=== PATIENT | male | born 1990 | race Caucasian/White ===

== ENCOUNTER 2021-04-16 19:13 | Emergency (ER) | payer OTHER ==
[~2021-04-16] VITALS: Ht 188 cm; Wt 165.6 kg
[2021-04-16] MEDS ORDERED: methylPREDNISolone 125 MG (Solu-MEDROL) VIAL IV STA (19:46)
--- NOTE | 2021-04-16 19:57 | ED General ---
General Chief Complaint: Allergic Reaction Stated Complaint: RASH ON KNEES Nursing Triage Note: PT REPORTS TO ED FROM [facility]RGENT [facility]ARE [facility] WITH C/O RASH NOT GETTING BETTER AFTER 1WK OF ANTIBIOTICS. History of Present Illness Date Seen by Provider: Apr 16, 2021 Time Seen by Provider: 19:53 Initial Comments Patient is a 30-year-old male who presents ED with a lower extremity rash. Patient states rash started 1 week ago. Patient was outside and unsure if he was in contact with poison shannon. He did states he was scratched by a cat at home. Patient noted fluid-filled blisters. 2 days ago was placed on Keflex and doxycycline by [facility]. Recheck today recommend to come to the ED for IV antibiotics. Denies chest pain, shortness of breath, nausea, vomiting, diarrhea, fever. Does report a rash to the chest. He states the rash does itch. Denies of any change in foods, medications 1 week ago. Denies of any sore throat, oral lesions, sloughing of the skin. Allergies and Home Medications Allergies Coded Allergies: No Known Drug Allergies (Unverified , 04/16/21) Patient Home Medication List Home Medication List Reviewed: Yes Prednisone (Prednisone) 10 Mg Tab.ds.pk, 10 MG PO DAILY Prescribed by: SIERRA KEYS on 04/16/212131 Review of Systems Review of Systems Constitutional: No chills, No dizziness, No fever EENTM: No ear discharge, No hearing loss, No ear pain Respiratory: No cough, No orthopnea, No short of breath Cardiovascular: No chest pain Gastrointestinal: No abdominal pain, No diarrhea, No nausea, No vomiting Musculoskeletal: No back pain, No gout, No joint pain, No joint swelling Skin: lesions, rash, other (Lesions red, fluid-filled to the lower extremity. 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 oz. kg; 46.00 BMI Method: General Appearance: No Apparent Distress, WD/WN Eyes: Bilateral Eye Normal Inspection, Bilateral Eye PERRL HEENT: PERRL/EOMI, TMs Normal, Normal ENT Inspection, Pharynx Normal Neck: Full Range of Motion, Normal Inspection Respiratory: Chest Non Tender, Lungs Clear, Normal Breath Sounds, No Accessory Muscle Use Cardiovascular: Regular Rate, Rhythm, No Edema Gastrointestinal: Normal Bowel Sounds, No Organomegaly, No Pulsatile Mass, Non Tender, Soft Extremity: Other (Bilateral lower leg swelling. Diffuse erythematous papules with large fluid-filled vesicles. No purulent drainage. Clear fluid drainage) Neurologic/Psychiatric: Alert, Oriented x3 Skin: Normal Color, Warm/Dry, Other (Erythematous papules noted to the chest) Lymphatic: No Adenopathy Progress/Results/Core Measures Suspected Sepsis SIRS Temperature: Pulse: 88 Respiratory Rate: 16 Laboratory Tests 04/16/21 20:16: White Blood Count 12.5H Blood Pressure 149 /92 Mean: 111 Laboratory Tests 04/16/21 20:16: Creatinine 0.91, Platelet Count 343, Total Bilirubin 0.6 Results/Orders Lab Results Laboratory Tests Test 04/16/21 20:16 Range/Units White Blood Count 12.5 H 4.3-11.0 10^3/uL Red Blood Count 5.47 4.30-5.52 10^6/uL Hemoglobin 15.8 13.3-17.7 g/dL Hematocrit 47 40-54 % Mean Corpuscular Volume 86 80-99 fL Mean Corpuscular Hemoglobin 29 25-34 pg Mean Corpuscular Hemoglobin Concent 34 32-36 g/dL Red Cell Distribution Width 13.5 10.0-14.5 % Platelet Count 343 130-400 10^3/uL Mean Platelet Volume 10.3 9.0-12.2 fL Immature Granulocyte % (Auto) 0 % Neutrophils (%) (Auto) 65 42-75 % Lymphocytes (%) (Auto) 22 12-44 % Monocytes (%) (Auto) 6 0-12 % Eosinophils (%) (Auto) 7 0-10 % Basophils (%) (Auto) 0 0-10 % Neutrophils # (Auto) 8.1 H 1.8-7.8 10^3/uL Lymphocytes # (Auto) 2.7 1.0-4.0 10^3/uL Monocytes # (Auto) 0.7 0.0-1.0 10^3/uL Eosinophils # (Auto) 0.8 H 0.0-0.3 10^3/uL Basophils # (Auto) 0.0 0.0-0.1 10^3/uL Immature Granulocyte # (Auto) 0.1 0.0-0.1 10^3/uL Sodium Level 139 135-145 MMOL/L Potassium Level 3.7 3.6-5.0 MMOL/L Chloride Level 104 98-107 MMOL/L Carbon Dioxide Level 19 L 21-32 MMOL/L Anion Gap 16 H 5-14 MMOL/L Blood Urea Nitrogen 16 7-18 MG/DL Creatinine 0.91 0.60-1.30 MG/DL Estimat Glomerular Filtration Rate 99 BUN/Creatinine Ratio 18 Glucose Level 125 H 70-105 MG/DL Calcium Level 9.2 8.5-10.1 MG/DL Corrected Calcium 9.0 8.5-10.1 MG/DL Total Bilirubin 0.6 0.1-1.0 MG/DL Aspartate Amino Transf (AST/SGOT) 32 5-34 U/L Alanine Aminotransferase (ALT/SGPT) 61 H 0-55 U/L Alkaline Phosphatase 95 40-136 U/L Total Protein 7.6 6.4-8.2 GM/DL Albumin 4.3 3.2-4.5 GM/DL My Orders Orders - LUIS F STEIN Cbc With Automated Diff (04/16/21 19:46) Comprehensive Metabolic Panel (04/16/21 19:46) Clindamycin 600 Mg/50 Ml Ivpb (Cleocin P (04/16/21 20:00) Methylprednisolone Sod Succ (Solu-Medrol (04/16/21 19:46) Medications Given in ED Current Medications Medications Dose Ordered Sig/Zee Route Start Time Stop Time Status Last Admin Dose Admin Clindamycin Phosphate/Dextrose 50 ml @ 100 mls/hr ONCE ONCE IV 04/16/21 20:00 04/16/21 20:29 DC 04/16/21 20:19 100 MLS/HR Vital Signs/I&O 04/16/21 04/16/21 19:25 21:43 Temp 36.9 36.9 Pulse 88 88 Resp 16 16 B/P (MAP) 149/92 (111) 149/92 Pulse Ox 98 98 O2 Delivery Room Air Room Air Capillary Refill : Less Than 3 Seconds Blood Pressure Mean: 111 Departure Communication (Admissions) Patient with lower extremity rash. Several fluid-filled vesicles actively drainage. Mild crusting. Edema noted bilateral lower extremities. Dorsalis pedis bilateral lower extremity +2. Normal active range of motion. He reports extreme itching. Concerning for hypersensitivity reaction likely secondary to contact. Patient states he was outside 1 week ago when the rash started. Concerning for secondary cellulitis. Patient was given a dose of clindamycin here. Lab work was otherwise unremarkable. Slightly elevated white blood count. Patient states redness appears to be improving. Swelling appears to be improving 1 started Keflex and doxycycline 2 days ago. Was sent to the ED by [facility]. Discussed potential contact dermatitis. Patient was given dose of Solu-Medrol. Will discharge with taper prednisone. Did offer admission patient would rather follow-up outpatient [facility] at this time. If worsening symptoms patient return back to ED. No sloughing of the skin. Denies of any antibiotic or medication use that resulted in this rash. Does not appear to be Alejandre-Grady's or TEN. Outpatient follow-up at this time. If worsening symptoms return back to ED. Impression Primary Impression: Skin rash Disposition: 01 HOME, SELF-CARE Condition: Stable Departure-Patient Inst. Decision time for Depature: 21:19 Referrals: [facility] [place] Patient Instructions: Skin Rash Add. Discharge Instructions: Recommend following up with your PCP in 2 to 3 days for reevaluation. Discussed wound care. All discharge instructions reviewed with patient and/or family. Voiced understanding. Scripts Prednisone (Prednisone) 10 Mg Tab.ds.pk 10 MG PO DAILY, #42 EA Take 6 tabs(60mg)daily,decrease by 1 tab(10mg)every other day. Prov: LUIS F STEIN 04/16/21 LUIS F STEIN Apr 16, 2021 19:57
[2021-04-16] MEDS ORDERED: CLINDAMYCIN 600 MG/50 ML IVPB 50 ML IV ONE (20:00)
[2021-04-16 20:22] LABS: BASOPHILS % (AUTO) 0 % (0-10); EOSINOPHILS # (AUTO) 0.8 10^3/uL (0.0-0.3); EOSINOPHILS % (AUTO) 7 % (0-10); HEMATOCRIT 47 % (40-54); HEMOGLOBIN 15.8 g/dL (13.3-17.7); LYMPHOCYTES # (AUTO) 2.7 10^3/uL (1.0-4.0); LYMPHOCYTES % (AUTO) 22 % (12-44); MEAN CORPUSCULAR HEMOGLOBIN 29 pg (25-34); MEAN CORPUSCULAR HGB CONC 34 g/dL (32-36); MEAN CORPUSCULAR VOLUME 86 fL (80-99); MEAN PLATELET VOLUME 10.3 fL (9.0-12.2); MONOCYTES # (AUTO) 0.7 10^3/uL (0.0-1.0); MONOCYTES % (AUTO) 6 % (0-12); NEUTROPHILS # (AUTO) 8.1 10^3/uL (1.8-7.8); NEUTROPHILS % (AUTO) 65 % (42-75); PLATELET COUNT 343 10^3/uL (130-400); WHITE BLOOD COUNT 12.5 10^3/uL (4.3-11.0)
[2021-04-16 20:39] LABS: ALBUMIN 4.3 GM/DL (3.2-4.5); BILIRUBIN,TOTAL 0.6 MG/DL (0.1-1.0); CALCIUM 9.2 MG/DL (8.5-10.1); CREATININE SERUM 0.91 MG/DL (0.60-1.30); POTASSIUM 3.7 MMOL/L (3.6-5.0); TOTAL PROTEIN 7.6 GM/DL (6.4-8.2)
[2021-04-16] MEDS ORDERED: PRED10TA22 PO ×2 (21:21→21:32)
[2021-04-16 21:43] VITALS: BP 149/92
== END 2021-04-16 21:44 | disposition home or self-care (01) ==
LOC: ER 19:16
DX: R21 Rash and other nonspecific skin eruption (principal)
CPT/HCPCS: 36415; 80053; 85025